=== PATIENT | female | born 1965 | race Caucasian/White ===

== ENCOUNTER 2018-12-04 08:45 | Emergency (ER) | payer BC ==
[2018-12-04] MEDS ORDERED: Ketorolac Tromethamine 30 MG/ML VIAL ONE (08:48)
[2018-12-04] MEDS ORDERED: Metoclopramide HCl 10 MG/2 ML VIAL ONE (08:48)
[2018-12-04] MEDS ORDERED: diphenhydrAMINE 50 MG/ML VIAL ONE (08:48)
== END 2018-12-04 11:27 | disposition home or self-care (01) ==
LOC: ERS 08:45
DX: G43.909 Migraine, unspecified, not intractable, without status migrainosus (principal); I10 Essential (primary) hypertension
CPT/HCPCS: 96361; 96365; 96375; J1200; J1885; J2765